=== PATIENT | male | born 1960 | race Caucasian/White ===

== ENCOUNTER → 2017-08-22 | Outpatient (CLI) | payer OTHER ==
[2017-08-22 10:06] LABS: BASO % 0.6 %; BASO ABS # 0.04 K/uL (0-0.2); EOS ABS # 0.07 K/uL (0-0.5); HEMATOCRIT 46.6 % (42-52); IG# 0.01 K/uL (0.00-0.02); LYMPH ABS # 1.61 K/uL (1.2-3.4); MEAN CELL VOLUME 86.1 fL (80-100); MEAN CORPUSCULAR HEMOGLOBIN 29.6 pg (25-34); MEAN CORPUSCULAR HGB CONC 34.3 g/dl (32-36); MONO % 6.8 %; MONO ABS # 0.48 K/uL (0.11-0.59); NEUT % 68.5 %; PLATELET COUNT 230 K/uL (130-400); RED CELL DISTRIBUTION WIDTH CV 12.9 % (11.5-14.5); RED CELL DISTRIBUTION WIDTH SD 40.5 fL (36.4-46.3); WHITE BLOOD COUNT 7.01 K/uL (4.8-10.8)
[2017-08-22 11:30] LABS: ALBUMIN 4.5 gm/dl (3.4-5.0); BLOOD UREA NITROGEN 13 mg/dl (7-18); CALCIUM 9.2 mg/dl (8.5-10.1); CARBON DIOXIDE 26 mmol/L (21-32); CREATININE 0.99 mg/dl (0.60-1.40); GLUCOSE 94 mg/dl (70-99); POTASSIUM 4.7 mmol/L (3.5-5.1); SODIUM 134 mmol/L (136-145)
[2017-08-22 11:38] LABS: ALKALINE PHOSPHATASE 56 U/L (45-117); ALT/SGPT 28 U/L (12-78); AST/SGOT 16 U/L (15-37); TOTAL PROTEIN 7.8 gm/dl (6.4-8.2)
== END ==
LOC: C.LAB1850 09:12
PROVIDERS: ATTEND Physician Assistant
DX: G43.909 Migraine, unspecified, not intractable, without status migrainosus (principal); Z12.5 Encounter for screening for malignant neoplasm of prostate; Z11.59 Encounter for screening for other viral diseases

== ENCOUNTER → 2017-09-22 | Outpatient (CLI) | payer OTHER ==
--- NOTE | 2017-09-22 09:04 | DIAGNOSTIC IMAGING REPORT ---
LEFT KNEE 4 VIEWS CLINICAL HISTORY: Left knee pain. FINDINGS: AP, lateral, tunnel, and sunrise views of the left knee are obtained. No prior studies are available for comparison at the time of dictation. The skeletal structures are well mineralized. No fracture is seen. The joint spaces are preserved. There is no evidence of osteochondral defect on the tunnel image. There is a small joint effusion. Marked prepatellar soft tissue edema is identified. IMPRESSION: 1. Marked prepatellar soft tissue edema. 2. No bony abnormality is seen. 3. Small joint effusion. Electronically signed by: Fox Royal M.D. 09/22/2017 9:02 AM Dictated Date/Time: 09/22/2017 9:01 AM
== END | disposition home or self-care (01) ==
LOC: C.RAD1850 08:36
PROVIDERS: ATTEND Physician Assistant
DX: M25.562 Pain in left knee (principal)